=== PATIENT | male | born 1965 | race Caucasian/White ===

== ENCOUNTER 2018-11-20 21:53 | Emergency (ER) | payer SELFPAY ==
[~2018-11-20] VITALS: Ht 177.8 cm; Wt 82.0 kg
[2018-11-20] MEDS ORDERED: DEXT 5%/0.45% NACL 1000ML 1,000 ML IV ONE (23:59)
[2018-11-20] MEDS ORDERED: ONDANSETRON HCL 4MG/2ML INJ IV STA (23:59)
[2018-11-21 00:31] LABS: HEMATOCRIT. 42.6 % (42.0-52.0); HEMOGLOBIN. 14.5 g/dL (14.0-18.0); MEAN CORPUSCULAR HEMOGLOBIN 31.2 pg (28.0-32.0); MEAN CORPUSCULAR VOLUME 91.7 fL (80.0-94.0); MEAN PLATELET VOLUME 6.8 fl (7.4-10.4); PLATELET 215 x1000/uL (130-400); RED BLOOD CELL COUNT 4.64 mill/uL (4.7-6.1)
[2018-11-21 00:39] LABS: CHLORIDE 105 mEq/L (98-107)
[2018-11-21 00:58] LABS: ETHANOL BLOOD 438 mg/dL
[2018-11-21 01:24] LABS: ATYPICAL LYMPHOCYTES 1; PLATELET ESTIMATE NORMAL
[2018-11-21 18:00] VITALS: BP 123/78
== END 2018-11-21 18:37 | disposition home or self-care (01) ==
LOC: ER 21:53
DX: T51.91XA Toxic effect of unspecified alcohol, accidental (unintentional), initial encounter (principal); R07.9 Chest pain, unspecified; Y92.89 Other specified places as the place of occurrence of the external cause
CPT/HCPCS: 36415; 71045; 80053; 80307; 80320; 80329; 84484; 85025; 93005; 96374; 99284; J2405; G0480